=== PATIENT | male | born 1950 ===

== ENCOUNTER 2018-11-07 09:33 | Emergency (ER) | payer OTHER ==
[2018-11-07] MEDS ORDERED: Lidocaine 5% Patch TD STA (10:21)
--- NOTE | 2018-11-07 10:23 | ED PDOC ---
Arrival/HPI - General Historian: Patient - History of Present Illness Narrative History of Present Illness (Text): 11/07/18 10:13 68M w/ a PMH of HTN, DM, HLD, Hernias, presented to [facility] ED on 11/07 w/ c/o of backpain which has been gradually worsening over the past 6 days. Patient is complaining of R sided back pain which he describes as a sharp constant pain with radiation into the LUE. Pain is improved w/ lying flat; no complaints of numbness/tingling or weakness in the LUE. Upon ROS patien tvoices complaints of a persistent cough over the past 2 weeks. PMD: [place] PMH: HTN, DM, HLD Home Rx: Plavix 75QD, Metformin 1000 bid, simvastatin 40 qd, lisinopril 20 qd Social: Quit 4 years ago - 100 pack year hx, Denies EtOH, Denies Illicit drug use Allergies: NKDA Time/Duration: Prior to Arrival, 1 week Symptom Onset: Gradual Symptom Course: Unchanged Quality: Stabbing <Chele Watts - Last Filed: 11/07/18 11:35> <Flash Gandara - Last Filed: 11/08/18 16:30> - General Chief Complaint: Back Pain Time Seen by Provider: 11/07/18 09:44 Past Medical History - Provider Review Nursing Documentation Reviewed: Yes - Cardiac Hx Cardiac Disorders: Yes Hx Hypertension: Yes - Pulmonary Hx Respiratory Disorders: No - Neurological Hx Neurological Disorder: Yes Hx Transient Ischemic Attacks (TIA): Yes - HEENT Hx HEENT Disorder: No - Renal Hx Renal Disorder: No - Endocrine/Metabolic Hx Endocrine Disorders: Yes Hx Diabetes Mellitus Type 2: Yes - Hematological/Oncological Hx Blood Disorders: No - Integumentary Hx Dermatological Disorder: No - Musculoskeletal/Rheumatological Hx Musculoskeletal Disorders: No - Gastrointestinal Hx Gastrointestinal Disorders: No - Genitourinary/Gynecological Hx Genitourinary Disorders: No - Psychiatric Hx Psychophysiologic Disorder: No Hx Substance Use: No - Surgical History Other/Comment: LASER BACK SURGERY <Chele Watts - Last Filed: 11/07/18 11:35> Family/Social History - Physician Review Nursing Documentation Reviewed: Yes Family/Social History: Unknown Family HX Smoking Status: Former Smoker Hx Alcohol Use: No Hx Substance Use: No <Chele Watts - Last Filed: 11/07/18 11:35> Allergies/Home Meds <Chele Watts - Last Filed: 11/07/18 11:35> <Flash Gandara - Last Filed: 11/08/18 16:30> Allergies/Adverse Reactions: Allergies No Known Allergies Allergy (Verified 11/07/18 09:35) Home Medications: Home Meds Medication Instructions Recorded Confirmed Clopidogrel [Plavix] 75 mg PO DAILY 11/07/18 11/07/18 Lisinopril [Zestril] 20 mg PO DAILY 11/07/18 11/07/18 MetFORMIN [glucoPHAGE] 1,000 mg PO BID 11/07/18 11/07/18 Simvastatin 40 mg PO DAILY 11/07/18 11/07/18 Review of Systems - Physician Review All systems were reviewed & negative as marked: Yes - Review of Systems Constitutional: Normal Eyes: Normal ENT: Normal Respiratory: Cough. absent: SOB Cardiovascular: Normal. absent: Chest Pain Gastrointestinal: Normal Genitourinary Male: Normal Musculoskeletal: Back Pain Skin: Normal Neurological: Normal Endocrine: Normal Hemo/Lymphatic: Normal Psychiatric: Normal <Chele Watts - Last Filed: 11/07/18 11:35> Physical Exam Vital Signs Reviewed: Yes Vital Signs Temp Pulse Resp BP Pulse Ox 11/07/18 09:37 98.3 F 85 17 139/83 93 L Temperature: Afebrile Blood Pressure: Normal Pulse: Regular Respiratory Rate: Normal Appearance: Positive for: Well-Appearing, Non-Toxic, Comfortable Pain Distress: None Mental Status: Positive for: Alert and Oriented X 3 - Systems Exam Head: Present: Atraumatic, Normocephalic Pupils: Present: PERRL Extroacular Muscles: Present: EOMI Mouth: Present: Moist Mucous Membranes Respiratory/Chest: Present: Clear to Auscultation. No: Respiratory Distress Cardiovascular: Present: Regular Rate and Rhythm, Normal S1, S2. No: Murmurs Abdomen: Present: Normal Bowel Sounds. No: Tenderness, Distention Back: Present: Paraspinal Tenderness (Right upper back at level of T2/T3) Upper Extremity: Present: Normal Inspection, Neurovascularly Intact Lower Extremity: Present: Normal Inspection Neurological: Present: GCS=15, CN II-XII Intact Skin: Present: Warm, Dry, Normal Color Psychiatric: Present: Alert, Oriented x 3, Normal Insight <Chele Watts - Last Filed: 11/07/18 11:35> Vital Signs Temp Pulse Resp BP Pulse Ox 11/07/18 11:40 98.6 F 72 19 132/71 98 11/07/18 10:43 85 18 130/85 97 11/07/18 09:37 98.3 F 85 17 139/83 93 L <Flash Gandara L - Last Filed: 11/08/18 16:30> Medical Decision Making ED Course and Treatment: 11/07/18 10:37 68M w/ c/o backpain + cough Most likely MSK/ Muscle spasm given presentation and reproducible tenderness Will get CXR r/o PNA given significant smoking hx Toradol Lidoderm Flexeril 11/07/18 11:05 CXR wnl Will DC w/ Flexeril 5mg TID PRN x 5 days Lidoderm TD QD PRN OTC Motrin - RAD Interpretation Narrative RAD Interpretations (Text): 11/07/18 11:05 No acute cardiopulmonary disease Sample Card Maker: ED Physician, Radiologist <Chele Watts - Last Filed: 11/07/18 11:35> ED Course and Treatment: 11/07/18 10:45 Patient is a 68 year old male presenting to the emergency room complaining of back pain. In agreement with resident note, which includes further HPI details. Patient was seen and evaluated with resident, came up with plan and treatment together. Plan: -- Flexeril -- Toradol -- Lidoderm Patient improved throughout ED stay. CXR negative for PNA. Patient will be discharged home with PMD f/u and pain medications. - RAD Interpretation Radiology Orders: 11/07/18 10:21 CHEST PORTABLE [RAD] Stat - Medication Orders Current Medication Orders: Discontinued Medications Cyclobenzaprine HCl (Flexeril) 5 mg PO STAT STA Stop: 11/07/18 10:23 Last Admin: 11/07/18 10:35 Dose: 5 mg Ketorolac Tromethamine (Toradol) 15 mg IM STAT STA Stop: 11/07/18 10:27 Last Admin: 11/07/18 10:35 Dose: 15 mg [facility] Pain Assessment Document 11/07/18 10:35 GMI (Rec: 11/07/18 10:35 GMI [id number]) Pain Reassessment Is this a pain reassessment? Yes Sleep Is patient sleeping during reassessment? No Presence of Pain Presence of Pain Yes Pain Scale Used Protocol: PSCALES Pain Scale Used Numeric Location Upper or Lower Upper Description Description Intermittent Intensity of Pain at present 5 Pain Behavior Facial Grimacing IM Administration Charges Document 11/07/18 10:35 GMI (Rec: 11/07/18 10:35 GMI [id number]) Injection Site MAR Injection Site Right Deltoid Charges for Administration # of IM Administrations 1 Lidocaine (Lidoderm) 1 ea TD STAT STA Stop: 11/07/18 10:22 Last Admin: 11/07/18 10:33 Dose: 1 ea MAR Transdermal Patch Site Document 11/07/18 10:33 GMI (Rec: 11/07/18 10:35 GMI [id number]) Transdermal Patch Site Transdermal Patch Site Right Shoulder <Flash Gandara - Last Filed: 11/08/18 16:30> - PA / ELECTROTYPER / Resident Statement MD/DO has reviewed & agrees with the documentation as recorded. MD/DO has examined the patient and agrees with the treatment plan. - Scribe Statement The provider has reviewed the documentation as recorded by the Abdi Walker All medical record entries made by the Beverlyibe were at my direction and personally dictated by me. I have reviewed the chart and agree that the record accurately reflects my personal performance of the history, physical exam, me dical decision making, and the department course for this patient. I have also personally directed, reviewed, and agree with the discharge instructions and disposition. <Flash Gandara - Last Filed: 11/08/18 16:30> Disposition/Present on Arrival - Present on Arrival Any Indicators Present on Arrival: No History of DVT/PE: No History of Uncontrolled Diabetes: No Urinary Catheter: No History of Decub. Ulcer: No History Surgical Site Infection Following: None - Disposition Have Diagnosis and Disposition been Completed?: Yes Disposition Time: 11:12 Patient Plan: Discharge <Chele Watts - Last Filed: 11/07/18 11:35> <Flash Gandara - Last Filed: 11/08/18 16:30> - Disposition Diagnosis: Cough, Back pain Disposition: HOME/ ROUTINE Condition: STABLE Discharge Instructions (ExitCare): Upper Back Pain (DC) Additional Instructions: Please follow up with your primary care doctor within 1 day of discharge Please go to the nearest emergency department if new / worsening symptoms arise Prescriptions: Cyclobenzaprine [Flexeril] 5 mg PO TID PRN #15 tab PRN Reason: Back pain/spasm Ibuprofen [Ibu] 600 mg PO Q6H PRN 5 Days #20 tablet PRN Reason: back pain Lidocaine 5% [Lidoderm] 1 patch TOP DAILY PRN #5 patch PRN Reason: back pain Forms: [facility] ([place]ian)
[2018-11-07 11:41] VITALS: BP 132/71; PULSE 72; RESP 19; TEMP 98.6; O2SAT 98
--- NOTE | 2018-11-07 11:56 | RAD ---
Date of service: 11/07/2018 HISTORY: Chronic Cough/ Back Pain COMPARISON: No prior. FINDINGS: LUNGS: Mild bibasilar atelectasis left greater than right PLEURA: No significant pleural effusion identified, no pneumothorax apparent. CARDIOVASCULAR: No aortic atherosclerotic calcification present. Normal cardiac size. No pulmonary vascular congestion. OSSEOUS STRUCTURES: Mild multilevel degenerative spondylosis of the thoracic spine VISUALIZED UPPER ABDOMEN: Normal. OTHER FINDINGS: None. IMPRESSION: Mild bibasilar atelectasis on left greater than right
== END 2018-11-07 11:40 | disposition home or self-care (01) ==
LOC: ED 09:33
DX: M54.9 Dorsalgia, unspecified (principal); R05 Cough; I10 Essential (primary) hypertension; E11.9 Type 2 diabetes mellitus without complications; E78.5 Hyperlipidemia, unspecified; Z86.73 Personal history of transient ischemic attack (TIA), and cerebral infarction without residual deficits; Z87.891 Personal history of nicotine dependence
CPT/HCPCS: 71045; 96372; 99283; J1885